=== PATIENT | female | born 1935 | race Caucasian/White ===

== ENCOUNTER 2017-02-06 08:05 | Day surgery (SDC) | payer MEDICARE, BC ==
[~2017-02-06 08:05] MED LIST: Lactated Ringers 1,000 ML IV SCH
[2017-02-06] MEDS ORDERED: ceFAZolin 1 GM in Sodium Chloride 0.9% 100 ML IV SCH (10:27)
[2017-02-06] MEDS ORDERED: Propofol 200 MG/20 ML SDV ONE (11:15)
[2017-02-06] MEDS ORDERED: Atropine 0.4 MG/ML SDV ONE (11:15)
[2017-02-06 13:32] VITALS: BP 126/60
--- NOTE | 2017-02-09 23:05 | OR ---
DATE OF OPERATION: 02/06/2017 PREOPERATIVE DIAGNOSIS: Painful right olecranon hardware deep. POSTOPERATIVE DIAGNOSIS: Painful right olecranon hardware deep. PROCEDURE: Removal of deep hardware from the olecranon bone of the elbow. ANESTHESIA: General. CYLINDER HONER: Marshal Urena RN. SPECIMENS: None. DRAINS: None. ESTIMATED BLOOD LOSS: Minimal. COMPLICATIONS: None apparent. DESCRIPTION OF PROCEDURE: After informed consent was obtained, the patient was brought to the operating room where a general anesthetic was administered uneventfully. The elbow was prepped and draped sterilely. A time-out was held and antibiotics were confirmed. The limb was exsanguinated and the tourniquet inflated. The previous scar was opened sharply taken down directly on to the plane. We removed all the screws and then removed the plate, the rongeur, the screw land checker. Copiously irrigated and closed with 2-0 Vicryl and luther. Sterile dressings were applied. The tourniquet was let down. Hemostasis achieved with gentle pressure. She was brought to the recovery room in stable condition having tolerated the procedure well with no evident complications. ANAND/GLYNN /[id number]
== END 2017-02-06 13:10 ==
LOC: LB.SDS 08:05
PROVIDERS: ATTEND Orthopaedic Surgery
DX: T84.84XA Pain due to internal orthopedic prosthetic devices, implants and grafts, initial encounter (principal); Z88.0 Allergy status to penicillin
CPT/HCPCS: 20680; J0461; J0690; J2704; J7030; J7120

== ENCOUNTER 2018-05-19 07:33 | Emergency (ER) | payer MEDICARE, BC ==
[2018-05-19] MEDS: cefTRIAXone 1 GM Vial ONE (08:25)
[2018-05-19] MEDS: cefTRIAXone 1 GM Vial IM ONE (08:25)
--- NOTE | 2018-05-19 08:37 | EDM.PDOC ---
ED HPI GENERAL MEDICAL PROBLEM - General Stated Complaint: DERMITITIS Time Seen by Provider: 05/19/18 08:10 Source of Information: Reports: Patient, Family History Limitations: Reports: No Limitations - History of Present Illness INITIAL COMMENTS - FREE TEXT/NARRATIVE: Patient is an 82 year old woman who is post lumpectomy and chemo treatment for breast cancer who has developed a redness and infection on her left breast. She got a erythematous rash on the left breast last night and it is red and warm this morning. She has Rocephin and Doxycycline last time. Onset: Gradual Onset Date: 05/18/18 Onset Time: 22:00 Duration: Hour(s): (10) Location: Reports: Other (Left breast) Quality: Reports: Ache, Burning Severity: Mild Improves with: Reports: None Worsens with: Reports: None Context: Reports: Other (History of left breast cancer.) Associated Symptoms: Reports: No Other Symptoms - Related Data Allergies Allergy/AdvReac Type Severity Reaction Status Date / Time codeine Allergy Nausea Verified 05/19/18 08:05 Penicillins Allergy Hives Verified 12/09/16 16:53 Home Meds: Home Meds Acetaminophen [Tylenol Arthritis] 02/05/17 [History] Calcium Carbonate/Vitamin D3 [Calcium 600 + Vit D 200] 02/05/17 [History] Cholecalciferol (Vitamin D3) [Vitamin D3] 1,000 mg PO DAILY 02/05/17 [History] Levothyroxine 125 mcg PO ACBREAKFAST 02/05/17 [History] Metoprolol Tartrate [Lopressor] 50 mg PO BID 02/05/17 [History] [place]-3/DHA/Epa/Fish Oil [Fish Oil 1,000 mg Softgel] 2,000 mg PO DAILY 02/05/17 [History] Simvastatin [Zocor] 40 mg PO BEDTIME 02/05/17 [History] Triamterene/Hydrochlorothiazid [Triamterene-HCTZ 37.5-25 MG] 1 tab PO DAILY 12/23 [History] Warfarin Sodium [Jantoven] 2 mg PO WEEKLY 02/05/17 [History] Warfarin [Coumadin] 3 mg PO DAILY 02/05/17 [History] Past Medical History HEENT History: Reports: Impaired Vision Cardiovascular History: Reports: Afib, High Cholesterol, Hypertension Other Cardiovascular History: takes coumadin and metropolol Respiratory History: Reports: Other (See Below) Other Respiratory History: bronchitis Gastrointestinal History: Reports: None Genitourinary History: Reports: None [employer] History: Reports: Musculoskeletal History: Reports: Arthritis, Back Pain, Chronic, Other (See Below) Other Musculoskeletal History: arthritis through back, had surgery to clean out the arthritis, had broken R arm with plate years ago Neurological History: Reports: Vertigo, Other (See Below) Other Neuro History: has had about 3 episodes of vertigo, never been treated- PT will check for BPPV Psychiatric History: Reports: None Endocrine/Metabolic History: Reports: Other (See Below) Other Endocrine/Metabolic History: 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% Hematologic History: Reports: None Immunologic History: Reports: None Oncologic (Cancer) History: Reports: Breast Dermatologic History: Reports: None, Other (See Below) Other Dermatologic History: dry skin - Infectious Disease History Infectious Disease History: Reports: Measles - Past Surgical History HEENT Surgical History: Reports: Cataract Surgery Neurological Surgical History: Reports: Laminectomy, Lumbar Spine Musculoskeletal Surgical History: Reports: Shoulder Surgery, Other (See Below) Oncologic Surgical History: Reports: Lumpectomy, Other (See Below) Social & Family History - Family History Family Medical History: Noncontributory - Caffeine Use Caffeine Use: Reports: Coffee ED ROS GENERAL - Review of Systems Review Of Systems: See Below Constitutional: Reports: No Symptoms HEENT: Reports: No Symptoms Respiratory: Reports: No Symptoms Cardiovascular: Reports: No Symptoms Endocrine: Reports: No Symptoms GI/Abdominal: Reports: No Symptoms : Reports: No Symptoms Musculoskeletal: Reports: No Symptoms Skin: Reports: Rash Neurological: Reports: No Symptoms Psychiatric: Reports: No Symptoms Hematologic/Lymphatic: Reports: No Symptoms Immunologic: Reports: No Symptoms ED EXAM, SKIN/RASH Exam: See Below Exam Limited By: No Limitations General Appearance: Alert, WD/WN, No Apparent Distress Eye Exam: Bilateral Eye: EOMI, Normal Fundi, Normal Inspection, PERRL Ears: Normal External Exam, Normal Canal, Hearing Grossly Normal, Normal TMs Nose: Normal Inspection, Normal Mucosa, No Blood Throat/Mouth: Normal Inspection, Normal Lips, Normal Teeth, Normal Gums, Normal Oropharynx, Normal Voice, No Airway Compromise Head: Atraumatic, Normocephalic Neck: Normal Inspection, Supple, Non-Tender, Full Range of Motion Respiratory/Chest: No Respiratory Distress, Lungs Clear, Normal Breath Sounds, No Accessory Muscle Use, Chest Non-Tender Cardiovascular: Normal Peripheral Pulses, Regular Rate, Rhythm, No Edema, No Gallop, No JVD, No Murmur, No Rub GI/Abdominal: Normal Bowel Sounds, Soft, Non-Tender, No Organomegaly, No Distention, No Abnormal Bruit, No Mass Back Exam: Normal Inspection, Full Range of Motion, NT Extremities: Normal Inspection, Normal Range of Motion, Non-Tender, No Pedal Edema, Normal Capillary Refill Neurological: Alert, Oriented, CN II-XII Intact, Normal Cognition, Normal Gait, Normal Reflexes, No Motor/Sensory Deficits Psychiatric: Normal Affect, Normal Mood Skin: Rash (Left breast has erythema on 75% of the left breast.) Course - Vital Signs Text/Narrative:: Uneventful ED course. She was given Rocephin 1 gram and will be put on Doxycycline 100 mg po bid x 10 days, #20. See Dr. Dao in 2 days and return to ED if worsens in the meantime. - Orders/Labs/Meds Meds: Medications Discontinued Medications Generic Name Dose Route Start Last Admin Trade Name Leigh PRN Reason Stop Dose Admin Ceftriaxone Sodium Confirm 05/19/18 08:24 05/19/18 08:25 Rocephin Administered 05/19/18 08:25 Not Given Dose 1 gm .ROUTE .STK-MED ONE Departure - Departure Time of Disposition: 09:07 Disposition: Home, Self-Care 01 Condition: Good Clinical Impression: Cellulitis of left breast - Discharge Information Referrals: PCP,None [Primary Care Provider] -
[2018-05-19] MEDS ORDERED: Doxycycline 100 MG Cap ONE (08:40)
== END 2018-05-19 08:32 | disposition home or self-care (01) ==
LOC: LB.ED 07:33
DX: N61.0 Mastitis without abscess (principal); I48.91 Unspecified atrial fibrillation; E78.00 Pure hypercholesterolemia, unspecified; I10 Essential (primary) hypertension; Z79.01 Long term (current) use of anticoagulants; Z79.899 Other long term (current) drug therapy; Z88.5 Allergy status to narcotic agent; Z88.0 Allergy status to penicillin
CPT/HCPCS: 96372; 99282; 99283; A9270; J0696

== ENCOUNTER → 2019-09-12 | Outpatient (CLI) | payer MEDICARE, BC | LOC: LB.COAG 08:40 | PROVIDERS: ATTEND Family Medicine | DX: I48.91 Unspecified atrial fibrillation (principal); Z79.01 Long term (current) use of anticoagulants | CPT/HCPCS: 85610 ==